=== PATIENT | female | born 1955 | race Caucasian/White ===

== ENCOUNTER 2021-07-06 14:21 | Emergency (ER) | payer OTHER ==
[2021-07-06 14:32] VITALS: RESP 18
[2021-07-06] MEDS ORDERED: SODIUM CHLORIDE 0.9% 1,000 ML IV STA (15:34)
[2021-07-06] MEDS ORDERED: ONDANSETRON 4 MG/2 ML VIAL IVP STA (15:34)
[2021-07-06] MEDS ORDERED: diphenhydrAMINE 50 MG/ML 1 ML VIAL IVP STA (15:34)
[2021-07-06] MEDS ORDERED: FAMOTIDINE 20 MG/2 ML VIAL IV STA (15:34)
[2021-07-06 15:52] LABS: Basophils % (A) 1 %; Eosinophils # (A) 0.1 k/uL (0-0.7); Eosinophils % (A) 1 %; HCT 44.1 % (34.0-46.0); HGB 14.4 gm/dL (11.4-16.0); Lymphocytes # (A) 1.2 k/uL (1.0-4.8); Lymphocytes % (A) 16 %; MCH 27.4 pg (25.0-35.0); MCHC 32.7 g/dL (31.0-37.0); MCV 83.7 fL (80.0-100.0); Mean Platelet Volume 7.6; Monocytes # (A) 0.4 k/uL (0-1.0); Monocytes % (A) 5 %; Neutrophils # (A) 5.8 k/uL (1.3-7.7); Neutrophils % (A) 76 %; Platelet Count 227 k/uL (150-450); RBC 5.27 m/uL (3.80-5.40); RDW 13.7 % (11.5-15.5); WBC 7.7 k/uL (3.8-10.6)
[2021-07-06] MEDS: MORPHINE SULFATE 2 MG/ML SYRINGE IVP STA ×2 (16:00→20:44)
[2021-07-06 16:03] LABS: ALT 17 U/L (4-34); AST 31 U/L (14-36); African American GFR (CKD) >90 (>60 ml/min/1.73 sqM); Albumin 4.3 g/dL (3.5-5.0); Alkaline Phosphatase 74 U/L (38-126); Amylase 52 U/L (30-110); Anion Gap 7 mmol/L; Blood Urea Nitrogen 13 mg/dL (7-17); Calcium 9.2 mg/dL (8.4-10.2); Carbon Dioxide 22 mmol/L (22-30); Chloride 107 mmol/L (98-107); Glucose 129 mg/dL (74-99); Lipase 86 U/L (23-300); Magnesium 2.1 mg/dL (1.6-2.3); Non-African American GFR(CKD) >90 (>60 ml/min/1.73 sqM); Sodium 136 mmol/L (137-145); Total Bilirubin 0.8 mg/dL (0.2-1.3); Total Protein 7.1 g/dL (6.3-8.2)
[2021-07-06 16:06] LABS: Potassium 4.3 mmol/L (3.5-5.1)
[2021-07-06 16:16] LABS: INR 2.9 (<1.2); Partial Thromboplastin Time 36.2 sec (22.0-30.0); Prothrombin Time 28.1 sec (9.0-12.0)
[2021-07-06 16:54] LABS: Appearance,Urine Clear (Clear); Bilirubin,Urine Negative (Negative); Blood,Urine Negative (Negative); Color,Urine Colorless; Glucose,Urine (UA) Negative (Negative); Ketones,Urine Negative (Negative); Leukocyte Esterase,Urine Negative (Negative); Nitrite,Urine Negative (Negative); PH, Urine 7.5 (5.0-8.0); Protein,Urine Negative (Negative); Specific Gravity,Urine 1.006 (1.001-1.035); Urobilinogen,Urine <2.0 mg/dL (<2.0)
--- NOTE | 2021-07-06 17:28 | ED ---
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 She states she has not had any fevers or chest pain. Denies any shortness breath, cough. She denies any change in her bowel habits. Denies any vaginal discharge or dysuria. She states abdominal pain is prematurely in the epigastric region and she does have a history of GERD suspected that may be related to an arrhythmia been something she ate. She endorses nausea and nonbilious, bloody emesis. She scribes the dizziness as a lightheadedness sensation sometimes as well as a vertiginous type of dizziness which she does have a history of. It comes and goes. She states she feels dry and may be dehydrated. She otherwise has no acute complaints at this time. She has any abdominal surgeries and states she still has her gallbladder as well as appendix. She denies any lower abdominal pain or back pain. She is no other acute complaints at this time. - Related Data Previous Rx's Medication Instructions Recorded Meclizine [Antivert] 25 mg PO BID PRN 7 Days #14 tab 07/06/21 Ondansetron Odt [Zofran Odt] 4 mg PO Q8HR PRN 2 Days #6 tab 07/06/21 Allergies Allergy/AdvReac Type Severity Reaction Status Date / Time No Known Allergies Allergy Verified 07/06/21 14:32 Review of Systems ROS Statement: Those systems with pertinent positive or pertinent negative responses have been documented in the HPI. Review of Systems: CONST: Denies fever EYES: Denies blurry vision ENT: Denies nasal congestion C/V: Denies Chest pain RESP: Denies shortness of breath GI: Endorses abdominal pain : Denies dysuria SKIN: Denies rash. MSK: Denies joint pain. NEURO: Denies headache ROS Other: All systems not noted in ROS Statement are negative. Past Medical History Past Medical History: Coronary Artery Disease (CAD), CVA/TIA, Hypertension History of Any Multi-Drug Resistant Organisms: None Reported Past Surgical History: Section, Hysterectomy Smoking Status: Never smoker Past Alcohol Use History: None Reported Past Drug Use History: None Reported General Exam - General Exam Comments Initial Comments: General: Appears in mild distress secondary to abdominal pain. HEAD: Normal with no signs of head trauma. EYES: PERRLA, EOMI, conjunctiva normal, no discharge. Pupils are 3 mm and equal bilaterally. ENT: Hearing grossly intact, normal oropharynx. Dry mucous membranes. RESPIRATORY: Clear breath sounds bilaterally. No wheezes, rales, or rhonchi. C/V: Regular rate and rhythm. S1 and S2 auscultated, no edema, peripheral pulses 2+ and intact throughout ABD: Soft, nondistended. Patient is tender to palpation in the epigastric region and right upper quadrant. No rebound tenderness. No CVA tenderness to percussion. No peritoneal signs. No guarding. EXT: Normal range of motion, no obvious deformity SKIN: No rashes or lesions observed on exposed skin. NEURO: Alert and oriented 4. Cranial nerves II through XII Intact. Patient do es have slight facial droop on the right side as well as slight weakness in the right upper and right lower extremity is which is chronic. She is able to ambulate. Patient has normal finger-nose testing. Limitations: no limitations Course Vital Signs 07/06/21 07/06/21 07/06/21 14:27 16:42 17:39 Temperature 98.4 F Pulse Rate 68 74 64 Respiratory 18 18 18 Rate Blood Pressure 172/101 192/112 163/83 O2 Sat by Pulse 99 98 96 Oximetry 07/06/21 20:45 Temperature 97.7 F Pulse Rate 61 Respiratory 18 Rate Blood Pressure 150/83 O2 Sat by Pulse 94 L Oximetry Medical Decision Making - Medical Decision Making Based on patient's presentation and physical exam, I'm concerned for likely acute intra-abdominal process for the Patient, a clean possible infectious process. However due to her age I cannot rule the possibility of ACS at this time. We will obtain abdominal laboratory studies as well as a cardiac workup: Troponin, EKG, chest x-ray. We will obtain a right upper quadrant gallbladder ultrasound. Patient was in agreement with this plan. She'll be connected to continuous cardiac monitoring while she is here. Patient will be given meclizine while here in the department as well as IV morphine, Zofran, 1 L fluid bolus, Pepcid, Benadryl for Synthroid treatment. She was in agreement this plan. Patient's EKG shows no signs of acute ischemia. Patient's right upper quadrant ultrasound was unremarkable. Patient's chest x-ray shows no acute cardiopulmonary process. Lab studies are remarkable for negative troponin. Patient has an elevated INR in the setting of chronic Coumadin use. It is therapeutic at this time. Electrolytes are unremarkable. Urinalysis is within normal limits per COVID-19 swab was negative. Remainder the lavatory studies are unremarkable. On reevaluation, patient states that her symptoms are somewhat improved but still is abdominal pain. Due to her age I did recommend that we obtain a CT abd pelvis at this time which was in agreement this plan. There was a delay in obtaining a CT abdomen and pelvis, due to increased volume in the department as well as CT scanner having to be shut down for a period of Time the patient was here. Eventually patient did obtain a CT abdomen and pelvis and was remarkable for no acute findings. On reevaluation, she is feeling improved at this time. She is tolerating by mouth intake. I do believe it is safer to be discharged home. She was in agreement this plan. I will provide the patient with a prescription for meclizine, ODT Zofran. I instructed the patient to follow up with their PCP in the next 3 days. . I explained that the patient should return to the emergency department if they experience any worsening symptoms. Strict return precautions were discussed with the patient. The patient expressed understanding of these instructions. I answered all questions that the patient had. The patient was discharged home in fair condition with their prescriptions and follow up information. - Lab Data Result diagrams: 07/06/21 15:38 07/06/21 15:38 Lab Results 07/06/21 07/06/21 07/06/21 Range/Units 15:38 15:38 15:38 WBC 7.7 (3.8-10.6) k/uL RBC 5.27 (3.80-5.40) m/uL Hgb 14.4 (11.4-16.0) gm/dL Hct 44.1 (34.0-46.0) % MCV 83.7 (80.0-100.0) fL MCH 27.4 (25.0-35.0) pg MCHC 32.7 (31.0-37.0) g/dL RDW 13.7 (11.5-15.5) % Plt Count 227 (150-450) k/uL MPV 7.6 Neutrophils % 76 % Lymphocytes % 16 % Monocytes % 5 % Eosinophils % 1 % Basophils % 1 % Neutrophils # 5.8 (1.3-7.7) k/uL Lymphocytes # 1.2 (1.0-4.8) k/uL Monocytes # 0.4 (0-1.0) k/uL Eosinophils # 0.1 (0-0.7) k/uL Basophils # 0.0 (0-0.2) k/uL PT 28.1 H (9.0-12.0) sec INR 2.9 H (<1.2) APTT 36.2 H (22.0-30.0) sec Sodium 136 L (137-145) mmol/L Potassium 4.3 (3.5-5.1) mmol/L Chloride 107 (98-107) mmol/L Carbon Dioxide 22 (22-30) mmol/L Anion Gap 7 mmol/L BUN 13 (7-17) mg/dL Creatinine 0.62 (0.52-1.04) mg/dL Est GFR (CKD-EPI)AfAm >90 (>60 ml/min/1.73 sqM) Est GFR (CKD-EPI)NonAf >90 (>60 ml/min/1.73 sqM) Glucose 129 H (74-99) mg/dL Calcium 9.2 (8.4-10.2) mg/dL Magnesium 2.1 (1.6-2.3) mg/dL Total Bilirubin 0.8 (0.2-1.3) mg/dL AST 31 (14-36) U/L ALT 17 (4-34) U/L Alkaline Phosphatase 74 (38-126) U/L Troponin I (0.000-0.034) ng/mL Total Protein 7.1 (6.3-8.2) g/dL Albumin 4.3 (3.5-5.0) g/dL Amylase 52 (30-110) U/L Lipase 86 (23-300) U/L Urine Color Urine Appearance (Clear) Urine pH (5.0-8.0) Ur Specific [place] (1.001-1.035) Urine Protein (Negative) Urine Glucose (UA) (Negative) Urine Ketones (Negative) Urine Blood (Negative) Urine Nitrite (Negative) Urine Bilirubin (Negative) Urine Urobilinogen (<2.0) mg/dL Ur Leukocyte Esterase (Negative) Coronavirus (PCR) (Not Detectd) 07/06/21 07/06/21 07/06/21 Range/Units 15:38 16:06 16:42 WBC (3.8-10.6) k/uL RBC (3.80-5.40) m/uL Hgb (11.4-16.0) gm/dL Hct (34.0-46.0) % MCV (80.0-100.0) fL MCH (25.0-35.0) pg MCHC (31.0-37.0) g/dL RDW (11.5-15.5) % Plt Count (150-450) k/uL MPV Neutrophils % % Lymphocytes % % Monocytes % % Eosinophils % % Basophils % % Neutrophils # (1.3-7.7) k/uL Lymphocytes # (1.0-4.8) k/uL Monocytes # (0-1.0) k/uL Eosinophils # (0-0.7) k/uL Basophils # (0-0.2) k/uL PT (9.0-12.0) sec INR (<1.2) APTT (22.0-30.0) sec Sodium (137-145) mmol/L Potassium (3.5-5.1) mmol/L Chloride (98-107) mmol/L Carbon Dioxide (22-30) mmol/L Anion Gap mmol/L BUN (7-17) mg/dL Creatinine (0.52-1.04) mg/dL Est GFR (CKD-EPI)AfAm (>60 ml/min/1.73 sqM) Est GFR (CKD-EPI)NonAf (>60 ml/min/1.73 sqM) Glucose (74-99) mg/dL Calcium (8.4-10.2) mg/dL Magnesium (1.6-2.3) mg/dL Total Bilirubin (0.2-1.3) mg/dL AST (14-36) U/L ALT (4-34) U/L Alkaline Phosphatase (38-126) U/L Troponin I <0.012 (0.000-0.034) ng/mL Total Protein (6.3-8.2) g/dL Albumin (3.5-5.0) g/dL Amylase (30-110) U/L Lipase (23-300) U/L Urine Color Colorless Urine Appearance Clear (Clear) Urine pH 7.5 (5.0-8.0) Ur Specific [place] 1.006 (1.001-1.035) Urine Protein Negative (Negative) Urine Glucose (UA) Negative (Negative) Urine Ketones Negative (Negative) Urine Blood Negative (Negative) Urine Nitrite Negative (Negative) Urine Bilirubin Negative (Negative) Urine Urobilinogen <2.0 (<2.0) mg/dL Ur Leukocyte Esterase Negative (Negative) Coronavirus (PCR) Not Detected (Not Detectd) - EKG Data -: EKG Interpreted by Me EKG Comments: 12-lead Electrocardiogram Interpretation Note EKG was reviewed and interpreted by myself. 12-lead ECG performed at 1440 is interpreted by me as revealing normal sinus rhythm at a rate of 73 beats per minute. [place] is normal. SD interval is 170 ms, QRS duration is 84 ms, QTc is 473 ms.. There were no ST or T wave abnormalities to suggest myocardial ischemia or injury. R wave progression across the precordium was satisfactory. By my interpretation this EKG is non-diagnostic for acute ischemia. Disposition Clinical Impression: Nausea and vomiting, Dehydration, Abdominal pain of unknown cause, Viral syndrome, Dizziness Disposition: HOME SELF-CARE Condition: Fair Instructions (If sedation given, give patient instructions): Acute Nausea and Vomiting (ED), Viral Syndrome (ED), Abdominal Pain (ED) Prescriptions: Meclizine [Antivert] 25 mg PO BID PRN 7 Days #14 tab PRN Reason: Vertigo Ondansetron Odt [Zofran Odt] 4 mg PO Q8HR PRN 2 Days #6 tab PRN Reason: Nausea Is patient prescribed a controlled substance at d/c from ED?: No Referrals: None,Stated [Primary Care Provider] - 1-2 days An Pedroza MD [STAFF PHYSICIAN] - 1-2 days
--- NOTE | 2021-07-06 17:30 | XR ---
EXAMINATION TYPE: XR chest 2V DATE OF EXAM: 07/06/2021 COMPARISON: NONE HISTORY: Chest pain TECHNIQUE: 2 views FINDINGS: There is no heart failure nor confluent pneumonic infiltrate. Costophrenic angles are clear . Thoracic aorta is atheromatous. There are chest leads. IMPRESSION: No active cardiopulmonary disease. Borderline cardiomegaly.
--- NOTE | 2021-07-06 17:34 | US ---
EXAMINATION TYPE: US gallbladder DATE OF EXAM: 07/06/2021 COMPARISON: NONE CLINICAL HISTORY: RUQ abd pain. Abdomen pain and N/V x couple days EXAM MEASUREMENTS: Liver Length: 14.4 cm Gallbladder Wall: 0.2 cm CBD: 0.4 cm Right Kidney: 9.5 x 4.1 x 4.3 cm Pancreas: visualized portions wnl, limited by overlying midline bowel gas Liver: wnl Gallbladder: wnl Evidence for sonographic Benavidez's sign: no CBD: visualized portions wnl, limited by overlying bowel gas Right Kidney: visualized portions wnl, inferior pole limited by overlying bowel gas IMPRESSION: No gallstones or dilated ducts. No free fluid.
[2021-07-06 20:46] VITALS: TEMP 97.7
[2021-07-06] MEDS ORDERED: MECLIZINE 12.5 MG TAB PO STA ×2 (20:48→21:43)
--- NOTE | 2021-07-06 21:35 | CT ---
EXAMINATION TYPE: CT abdomen pelvis w con DATE OF EXAM: 07/06/2021 COMPARISON: None HISTORY: abd pain CT DLP: 1198 mGycm Automated exposure control for dose reduction was used. CONTRAST: Performed with IV Contrast, patient injected with 100 mL of Isovue 300. There is some mild interstitial density at the lung bases. There is no pleural effusion. Heart size i s normal. There is no pericardial effusion. Liver spleen pancreas gallbladder appear normal. Bile ducts are not dilated. There is no adrenal mass . Kidneys show satisfactory contrast opacification. There is no hydronephrosis. Delayed images show n ormal renal excretion. Ureters are not dilated. Bladder distends smoothly. There is no inguinal herni a. There is no free fluid in the pelvis. There is no evidence of a pelvic mass. There is hysterectomy . Appendix appears normal. There is no mesenteric edema. There is no ascites or free air. There is no bowel obstruction. Lumbar vertebra have normal alignment. There is no compression fracture. Disc spaces are fairly normal. Post erior elements are intact. Bony pelvis is intact. Hip joints are intact. Impression Negative CT scan abdomen and pelvis.
[2021-07-06] MEDS ORDERED: MECLIZINE 25 MG TAB PO STA (21:44)
[2021-07-06 21:57] VITALS: BP 159/84; PULSE 68
== END 2021-07-06 22:02 | disposition home or self-care (01) ==
LOC: EC 14:21
DX: R10.13 Epigastric pain (principal); R11.2 Nausea with vomiting, unspecified; E86.0 Dehydration; B34.9 Viral infection, unspecified; R42 Dizziness and giddiness; I11.9 Hypertensive heart disease without heart failure; I25.10 Atherosclerotic heart disease of native coronary artery without angina pectoris; Z86.73 Personal history of transient ischemic attack (TIA), and cerebral infarction without residual deficits; Z90.710 Acquired absence of both cervix and uterus; Z20.822 Contact with and (suspected) exposure to COVID-19
CPT/HCPCS: 99285; 96374; 96375 ×2; 96361 ×5; 36415; 93005; 80053; 82150; 83690; 83735; 84484; 85025; 85610; 85730; 81003; 87635; 71046; 76705; 74177; J1200; J2405; Q9967; 99284

== ENCOUNTER → 2022-01-02 | Outpatient (CLI) | payer OTHER ==
[2022-01-02 15:08] LABS: ALT 22 U/L (8-44); AST 32 U/L (13-35); African American GFR (CKD) 85.7 (60.0-200.0); Albumin 4.2 g/dL (3.8-4.9); Albumin/Globulin Ratio 1.75 (1.60-3.17); Alkaline Phosphatase 74 U/L (41-126); BUN/Creat Ratio 24.79 Ratio (12.00-20.00); Blood Urea Nitrogen 20.7 mg/dL (9.0-27.0); Carbon Dioxide 21.7 mmol/L (20.0-27.5); Chloride 105 mmol/L (96-109); Chol/HDL Ratio 4.52 Ratio; Globulin 2.4 g/dL (1.6-3.3); Glucose 104 mg/dL (70-110); LDL Cholesterol,Calculated 171.8 mg/dL (0.0-131.0); Potassium 3.9 mmol/L (3.5-5.5); Sodium 139 mmol/L (135-145); Total Protein 6.7 g/dL (6.2-8.2)
== END | disposition home or self-care (01) ==
LOC: LABWHC1 08:33
PROVIDERS: ATTEND Internal Medicine Interventional Cardiology
DX: E78.2 Mixed hyperlipidemia (principal)
CPT/HCPCS: 36415; 80053; 80061

== ENCOUNTER 2022-05-22 13:11 | Emergency (ER) | payer OTHER ==
[2022-05-22 13:16] VITALS: TEMP 98.4
[2022-05-22] MEDS ORDERED: MORPHINE SULFATE 4 MG/ML SYRINGE IV STA (13:33)
[2022-05-22] MEDS ORDERED: SODIUM CHLORIDE 0.9% 500 ML 500 ML IV STA (13:33)
--- NOTE | 2022-05-22 13:38 | ED ---
Abdominal Pain HPI - General Source: patient, RN notes reviewed, old records reviewed Mode of arrival: ambulatory Limitations: no limitations - History of Present Illness MD Complaint: abdominal pain -: hour(s) (14) Location: RUQ, epigastric Radiation: back Severity scale (1-10): 9 Quality: stabbing Improves With: nothing Worsens With: movement Associated Symptoms: fever, chills Treatments Prior to Arrival: other (PCP office) <Cory Velez - Last Filed: 05/22/22 16:23> <Grant Jeffers - Last Filed: 05/22/22 17:54> - General Chief Complaint: Abdominal Pain Stated Complaint: Abdominal Pain Time Seen by Provider: 05/22/22 13:25 - History of Present Illness Initial Comments: This is a well-appearing 66-year-old female presents to the emergency room with complaints of right upper quadrant and epigastric pain that started at 10:30 last night. She states it radiates into her back. She states that she has had fever and chills. She called her primary care Dr. Kwon today who recommended she come to the emergency room for concerns of gallbladder infection. Patient has a history of hypertension, coronary artery disease, factor V leiden and TIA. She has no surgical history. She is a nonsmoker. She does take Coumadin daily. (Cory Velez) - Related Data Home Medications Medication Instructions Recorded Confirmed Aspirin EC [Ecotrin Low Dose] 81 mg PO DAILY 05/22/22 05/22/22 Cholecalciferol [Vitamin D3 (25 25 mcg PO DAILY 05/22/22 05/22/22 Mcg = 1000 Iu)] Ezetimibe [Zetia] 5 mg PO Q48H 05/22/22 05/22/22 Folic Acid 0.4 mg PO DAILY 05/22/22 05/22/22 Levothyroxine Sodium [Synthroid] 50 mcg PO DAILY 05/22/22 05/22/22 Omeprazole 20 mg PO DAILY 05/22/22 05/22/22 Propranolol HCl 20 mg PO BID 05/22/22 05/22/22 Sertraline [Zoloft] 12.5 mg PO DAILY 05/22/22 05/22/22 Warfarin Sodium 4 mg PO HS 05/22/22 05/22/22 amLODIPine [Norvasc] 5 mg PO HS 05/22/22 05/22/22 Allergies Allergy/AdvReac Type Severity Reaction Status Date / Time No Known Allergies Allergy Verified 05/22/22 16:42 Review of Systems ROS Other: All systems not noted in ROS Statement are negative. <Cory Velez - Last Filed: 05/22/22 16:23> ROS Other: All systems not noted in ROS Statement are negative. <Grant Jeffers - Last Filed: 05/22/22 17:54> ROS Statement: Those systems with pertinent positive or pertinent negative responses have been documented in the HPI. Past Medical History Past Medical History: Coronary Artery Disease (CAD), CVA/TIA, Hypertension History of Any Multi-Drug Resistant Organisms: None Reported Past Surgical History: Section, Hysterectomy Past Psychological History: No Psychological Hx Reported Smoking Status: Never smoker Past Alcohol Use History: None Reported Past Drug Use History: None Reported <Cory Velez - Last Filed: 05/22/22 16:23> General Exam Limitations: no limitations General appearance: alert, in no apparent distress Head exam: Present: atraumatic, normocephalic Eye exam: Absent: scleral icterus, conjunctival injection Neck exam: Absent: tenderness, meningismus Respiratory exam: Present: normal lung sounds bilaterally. Absent: respiratory distress, accessory muscle use Cardiovascular Exam: Present: regular rate, normal rhythm GI/Abdominal exam: Present: soft, tenderness (Epigastric right upper quadrant). Absent: rigid Extremities exam: Present: normal capillary refill. Absent: pedal edema Back exam: Present: normal inspection, full ROM. Absent: tenderness, CVA tenderness (R), CVA tenderness (L), rash noted Expanded Back exam: Absent: saddle anesthesia Back exam: Negative Straight Leg Raising: Right, Left Neurological exam: Present: alert, oriented X3 Psychiatric exam: Present: normal affect, normal mood Skin exam: Present: warm, dry, normal color. Absent: cyanosis, diaphoretic, petechiae, pallor <Cory Velez - Last Filed: 05/22/22 16:23> Course Vital Signs 05/22/22 13:13 Temperature 98.4 F Pulse Rate 71 Respiratory 20 Rate Blood Pressure 131/74 O2 Sat by Pulse 100 Oximetry Medical Decision Making - Lab Data Result diagrams: 05/22/22 13:53 05/22/22 13:53 - EKG Data EKG shows normal: sinus rhythm (Ventricular rate 61, NM interval 0.173, QRS 0.86, QTC 0.450 normal axis) <Cory Velez - Last Filed: 05/22/22 16:23> - Lab Data Result diagrams: 05/22/22 13:53 05/22/22 13:53 <Grant Jeffers - Last Filed: 05/22/22 17:54> - Medical Decision Making Bilirubin 2.6 with elevations in AST ALT and alk phos. No evidence of leukocytosis. Ultrasound shows cholelithiasis with cholecystitis. Gallbladder shows sludge and stones with thickened possible and edematous wall. Common bile duct upper limits of normal. Patient states her pain is relieved after the Dilaudid. Surgery was paged. Case was signed out to Dr. Jeffers (Cory Velez) Patient was signed out to me by previous shift of nurse practitioner, Cory Velez. Briefly, patient is a 66-year-old female presents emergency department for epigastric pain. Laboratory evaluation suggests biliary duct obstruction. Ultrasound of the gallbladder shows cholelithiasis and perhaps cholecystitis. Patient started on Unasyn. Case discussed with general surgeon, Dr. Perdomo who requests the patient be transferred to a facility that has gastroenterolgy given that her presentation suggests ductal obstruction. Dr. Reed at [facility] was went except patient for urinary or transfer. (Grant Jeffers) - Lab Data Lab Results 05/22/22 05/22/22 05/22/22 Range/Units 13:53 13:53 13:53 WBC 6.0 (3.8-10.6) k/uL RBC 5.29 (3.80-5.40) m/uL Hgb 14.5 (11.4-16.0) gm/dL Hct 44.8 (34.0-46.0) % MCV 84.7 (80.0-100.0) fL MCH 27.5 (25.0-35.0) pg MCHC 32.4 (31.0-37.0) g/dL RDW 13.5 (11.5-15.5) % Plt Count 242 (150-450) k/uL MPV 7.5 Neutrophils % 77 % Lymphocytes % 14 % Monocytes % 7 % Eosinophils % 1 % Basophils % 0 % Neutrophils # 4.6 (1.3-7.7) k/uL Lymphocytes # 0.8 L (1.0-4.8) k/uL Monocytes # 0.4 (0-1.0) k/uL Eosinophils # 0.1 (0-0.7) k/uL Basophils # 0.0 (0-0.2) k/uL PT (9.0-12.0) sec INR (<1.2) APTT (22.0-30.0) sec Sodium 138 (137-145) mmol/L Potassium 4.3 (3.5-5.1) mmol/L Chloride 107 (98-107) mmol/L Carbon Dioxide 24 (22-30) mmol/L Anion Gap 7 mmol/L BUN 12 (7-17) mg/dL Creatinine 0.78 (0.52-1.04) mg/dL Est GFR (CKD-EPI)AfAm >90 (>60 ml/min/1.73 sqM) Est GFR (CKD-EPI)NonAf 81 (>60 ml/min/1.73 sqM) Glucose 128 H (74-99) mg/dL Plasma Lactic Acid Ayad (0.7-2.0) mmol/L Calcium 9.1 (8.4-10.2) mg/dL Total Bilirubin 2.6 H (0.2-1.3) mg/dL AST 749 H (14-36) U/L ALT 440 H (4-34) U/L Alkaline Phosphatase 181 H (38-126) U/L Troponin I 0.015 (0.000-0.034) ng/mL Total Protein 7.4 (6.3-8.2) g/dL Albumin 4.4 (3.5-5.0) g/dL Amylase 46 (30-110) U/L Lipase 124 (23-300) U/L Urine Color Urine Appearance (Clear) Urine pH (5.0-8.0) Ur Specific [place] (1.001-1.035) Urine Protein (Negative) Urine Glucose (UA) (Negative) Urine Ketones (Negative) Urine Blood (Negative) Urine Nitrite (Negative) Urine Bilirubin (Negative) Urine Urobilinogen (<2.0) mg/dL Ur Leukocyte Esterase (Negative) 05/22/22 05/22/22 05/22/22 Range/Units 13:53 13:53 13:53 WBC (3.8-10.6) k/uL RBC (3.80-5.40) m/uL Hgb (11.4-16.0) gm/dL Hct (34.0-46.0) % MCV (80.0-100.0) fL MCH (25.0-35.0) pg MCHC (31.0-37.0) g/dL RDW (11.5-15.5) % Plt Count (150-450) k/uL MPV Neutrophils % % Lymphocytes % % Monocytes % % Eosinophils % % Basophils % % Neutrophils # (1.3-7.7) k/uL Lymphocytes # (1.0-4.8) k/uL Monocytes # (0-1.0) k/uL Eosinophils # (0-0.7) k/uL Basophils # (0-0.2) k/uL PT 27.9 H (9.0-12.0) sec INR 2.8 H (<1.2) APTT 41.4 H (22.0-30.0) sec Sodium (137-145) mmol/L Potassium (3.5-5.1) mmol/L Chloride (98-107) mmol/L Carbon Dioxide (22-30) mmol/L Anion Gap mmol/L BUN (7-17) mg/dL Creatinine (0.52-1.04) mg/dL Est GFR (CKD-EPI)AfAm (>60 ml/min/1.73 sqM) Est GFR (CKD-EPI)NonAf (>60 ml/min/1.73 sqM) Glucose (74-99) mg/dL Plasma Lactic Acid Ayad 1.9 (0.7-2.0) mmol/L Calcium (8.4-10.2) mg/dL Total Bilirubin (0.2-1.3) mg/dL AST (14-36) U/L ALT (4-34) U/L Alkaline Phosphatase (38-126) U/L Troponin I (0.000-0.034) ng/mL Total Protein (6.3-8.2) g/dL Albumin (3.5-5.0) g/dL Amylase (30-110) U/L Lipase (23-300) U/L Urine Color Yellow Urine Appearance Clear (Clear) Urine pH 6.0 (5.0-8.0) Ur Specific [place] 1.006 (1.001-1.035) Urine Protein Negative (Negative) Urine Glucose (UA) Negative (Negative) Urine Ketones Negative (Negative) Urine Blood Negative (Negative) Urine Nitrite Negative (Negative) Urine Bilirubin Negative (Negative) Urine Urobilinogen <2.0 (<2.0) mg/dL Ur Leukocyte Esterase Negative (Negative) Disposition <Cory Velez - Last Filed: 05/22/22 16:23> Time of Disposition: 17:54 - Out of Hospital Transfer - Req. Specs Out of Hospital Transfer - Requested Specifics: Other Emergency Center ([facility]) <Grant Jeffers - Last Filed: 05/22/22 17:54> Clinical Impression: Biliary obstruction Disposition: OTHER INSTITUTION NOT DEFINED Condition: Fair Referrals: Ozzie Kwon MD [Primary Care Provider] - 1-2 days
[2022-05-22] MEDS ORDERED: HYDROmorphone 0.5 MG/0.5 ML SYRINGE IVP STA (13:59)
[2022-05-22] MEDS ORDERED: ONDANSETRON 4 MG/2 ML VIAL IVP STA ×2 (14:18→18:42)
[2022-05-22 14:40] LABS: Basophils % (A) 0 %; Eosinophils # (A) 0.1 k/uL (0-0.7); Eosinophils % (A) 1 %; HCT 44.8 % (34.0-46.0); HGB 14.5 gm/dL (11.4-16.0); Lymphocytes # (A) 0.8 k/uL (1.0-4.8); Lymphocytes % (A) 14 %; MCH 27.5 pg (25.0-35.0); MCHC 32.4 g/dL (31.0-37.0); MCV 84.7 fL (80.0-100.0); Mean Platelet Volume 7.5; Monocytes # (A) 0.4 k/uL (0-1.0); Monocytes % (A) 7 %; Neutrophils # (A) 4.6 k/uL (1.3-7.7); Neutrophils % (A) 77 %; Platelet Count 242 k/uL (150-450); RBC 5.29 m/uL (3.80-5.40); RDW 13.5 % (11.5-15.5)
[2022-05-22 14:44] LABS: Appearance,Urine Clear (Clear); Bilirubin,Urine Negative (Negative); Blood,Urine Negative (Negative); Color,Urine Yellow; Glucose,Urine (UA) Negative (Negative); Ketones,Urine Negative (Negative); Leukocyte Esterase,Urine Negative (Negative); Nitrite,Urine Negative (Negative); Protein,Urine Negative (Negative); Specific Gravity,Urine 1.006 (1.001-1.035); Urobilinogen,Urine <2.0 mg/dL (<2.0)
[2022-05-22 14:48] LABS: ALT 440 U/L (4-34); AST 749 U/L (14-36); African American GFR (CKD) >90 (>60 ml/min/1.73 sqM); Albumin 4.4 g/dL (3.5-5.0); Alkaline Phosphatase 181 U/L (38-126); Amylase 46 U/L (30-110); Anion Gap 7 mmol/L; Blood Urea Nitrogen 12 mg/dL (7-17); Calcium 9.1 mg/dL (8.4-10.2); Carbon Dioxide 24 mmol/L (22-30); Chloride 107 mmol/L (98-107); Glucose 128 mg/dL (74-99); Lipase 124 U/L (23-300); Non-African American GFR(CKD) 81 (>60 ml/min/1.73 sqM); Potassium 4.3 mmol/L (3.5-5.1); Sodium 138 mmol/L (137-145); Total Bilirubin 2.6 mg/dL (0.2-1.3); Total Protein 7.4 g/dL (6.3-8.2)
[2022-05-22 14:49] LABS: INR 2.8 (<1.2); Partial Thromboplastin Time 41.4 sec (22.0-30.0); Prothrombin Time 27.9 sec (9.0-12.0)
--- NOTE | 2022-05-22 15:51 | US ---
EXAMINATION TYPE: US gallbladder DATE OF EXAM: 05/22/2022 COMPARISON: CT dated 07/06/2021, ultrasound 07/06/2021 CLINICAL HISTORY: RUQ and epigastric pain. TECHNIQUE: Multiple sonographic images of the right upper quadrant are obtained. FINDINGS: EXAM MEASUREMENTS: Liver Length: 16.7 cm Gallbladder Wall: 0.6 cm CBD: 0.6 cm Right Kidney: 10.6 x 4.2 x 4.5 cm SYSTEMS PLANNER NOTES: Pancreas: Obscured by bowel gas Liver: limited visualization due to body habitus, echotexture is coarse Gallbladder: sludge and stones, thickened possible edematous wall Evidence for sonographic Benavidez's sign: no CBD: upper limits of normal Right Kidney: wnl IMPRESSION: Correlate for hepatic steatosis and cholecystitis, there is cholelithiasis, limited exam
[2022-05-22] MEDS ORDERED: AMPICILLIN-SULBACTAM 3 GM in SODIUM CHLORIDE 0.9% 100 ML IVPB STA (17:18)
[2022-05-22 18:41] VITALS: BP 136/79; PULSE 70; RESP 16
== END 2022-05-22 19:07 | disposition other institution (70) ==
LOC: EC 13:11
DX: K83.1 Obstruction of bile duct (principal); I25.10 Atherosclerotic heart disease of native coronary artery without angina pectoris; I10 Essential (primary) hypertension; Z86.73 Personal history of transient ischemic attack (TIA), and cerebral infarction without residual deficits; Z79.82 Long term (current) use of aspirin; Z79.899 Other long term (current) drug therapy
CPT/HCPCS: 36415; 93005; 80053; 82150; 83605; 83690; 84484; 85025; 85610; 85730; 81003; 76705; 99285; 96365; 96375; 96376; J2405; J0295; J1170

== ENCOUNTER → 2023-03-22 | Outpatient (CLI) | payer BC ==
[2023-03-22 15:55] LABS: Chol/HDL Ratio 3.87 Ratio; LDL Cholesterol,Calculated 117.4 mg/dL
[2023-03-23 08:37] LABS: ALT 25 U/L; AST 22 U/L; Albumin 4.4 d/dL; Alkaline Phosphatase 85 U/L; BUN/Creat Ratio 23.62 Ratio; Blood Urea Nitrogen 18.9 mg/dL; Calcium 9.3 mg/dL; Carbon Dioxide 24.1 mmol/L; Chloride 101 mmol/L; Globulin 2.2 d/dL; Glucose 111 mg/dL; Potassium 4.1 mmol/L; Sodium 140 mmol/L; Total Bilirubin 0.3 mg/dL; Total Protein 6.6 d/dL
== END | disposition home or self-care (01) ==
LOC: LABWHC1 07:21
PROVIDERS: ATTEND Nurse Practitioner Adult Health
DX: I10 Essential (primary) hypertension (principal); E78.2 Mixed hyperlipidemia
CPT/HCPCS: 36415; 80053; 80061

== ENCOUNTER → 2023-10-15 | Outpatient (CLI) | payer BC ==
[2023-10-15 08:47] LABS: ALT 27 U/L (4-34); AST 30 U/L (14-36)
[2023-10-15 09:06] LABS: INR 1.8 (<1.2); Partial Thromboplastin Time 36.7 sec (22.0-30.0); Prothrombin Time 18.5 sec (10.0-12.5)
[2023-10-15 15:35] LABS: Chol/HDL Ratio 3.18 Ratio
== END | disposition home or self-care (01) ==
LOC: LABWHC1 07:09
PROVIDERS: ATTEND Internal Medicine Interventional Cardiology
DX: E78.2 Mixed hyperlipidemia (principal); D68.9 Coagulation defect, unspecified; D68.51 Activated protein C resistance
CPT/HCPCS: 36415; 80061; 84450; 84460; 85610; 85730

== ENCOUNTER → 2024-07-07 | Outpatient (CLI) | payer MEDICARE, BC ==
[2024-07-11 10:09] LABS: Alt. alternata IgE Class CLASS 0; Alternaria alternata IgE <0.10 kU/L (<0.10); Asperg. fumagatus IgE <0.10 kU/L (<0.10); Asperg. fumagatus IgE Class CLASS 0; Bermuda Grass IgE <0.10 kU/L (<0.10); Birch(Com.Silvr) IgE <0.10 kU/L (<0.10); Birch(Com.Silvr) IgE Class CLASS 0; Cat Epith & Dander IgE <0.10 kU/L (<0.10); Cat Epith & Dander IgE Class CLASS 0; Clad herbarum IgE <0.10 kU/L (<0.10); Clad herbarum IgE Class CLASS 0; Cockroach IgE <0.10 kU/L (<0.10); Cottonwood IgE <0.10 kU/L (<0.10); Dermato. Pteronyssinus Class CLASS 0; Dermato. Pteronyssinus IgE <0.10 kU/L (<0.10); Dermato. farinae IgE <0.10 kU/L (<0.10); Dermato. farinae IgE Class CLASS 0; Dog Dander IgE <0.10 kU/L (<0.10); Elm IgE <0.10 kU/L (<0.10); IgE (Allergen) 3.4 IU/mL (<114.0); Maple (Box Elder) IgE <0.10 kU/L (<0.10); Maple (Box Elder) IgE Class CLASS 0; Mountain Cedar IgE <0.10 kU/L (<0.10); Mountain Cedar IgE Class CLASS 0; Mouse Urine IgE Class CLASS 0; Mouse Urine Proteins,IgE <0.10 kU/L (<0.10); Nettle IgE <0.10 kU/L (<0.10); Nettle IgE Class CLASS 0; Oak IgE <0.10 kU/L (<0.10); Penicillium chrysogenum IgE <0.10 kU/L (<0.10); Penicillium chrysogenum IgE Cl CLASS 0; Rough Marshelder IgE <0.10 kU/L (<0.10); Rough Marshelder IgE Class CLASS 0; Timothy Grass IgE <0.10 kU/L (<0.10); Timothy Grass IgE Class CLASS 0; White Ash IgE Class CLASS 0
== END | disposition home or self-care (01) ==
LOC: LABWHC1 08:58
PROVIDERS: ATTEND Internal Medicine Critical Care Medicine
DX: J30.9 Allergic rhinitis, unspecified (principal)
CPT/HCPCS: 36415; 82785; 85008; 86003

== ENCOUNTER → 2024-07-18 | Outpatient (CLI) | payer MEDICARE, BC ==
--- NOTE | 2024-07-18 11:12 | US ---
EXAMINATION TYPE: US abdomen complete DATE OF EXAM: 07/18/2024 COMPARISON: US 2021, CT 2020 CLINICAL INDICATION: Female, 68 years old with history of R10.12 LUQ PAIN K86.2 PANCREATIC CYSTS; LUQ pain TECHNIQUE: Multiple sonographic images of the abdomen are obtained. FINDINGS: EXAM MEASUREMENTS: Liver Length: 15.0 cm CBD: 0.5 cm Spleen: 10.8 cm Right Kidney: 10.8 x 4.4 x 4.4 cm Left Kidney: 9.5 x 4.4 x 4.1 cm Pancreas: visualized portions wnl, tail obscured by overlying midline bowel gas Liver: increased echogenicity, 2.7 x 1.6 x 2.7cm hypoechoic area seen Gallbladder: surgically absent Evidence for sonographic Benavidez's sign: no CBD: 0.5cm Spleen: 1.3cm cyst Right Kidney: wnl Left Kidney: wnl Upper IVC: wnl Abd Aorta: wnl IMPRESSION: 1. Increased echogenicity of the liver compatible cellulitis disease or stenosis. 2.7 cm area of redu sissy echogenicity may represent areas of focal fatty sparing which could be confirmed with CT scan. 2. Post cholecystectomy. [facility], , 07/18/2024 11:10 AM
== END | disposition home or self-care (01) ==
LOC: RADUSWWP 07:20
PROVIDERS: ATTEND Internal Medicine Gastroenterology
DX: K86.2 Cyst of pancreas (principal); Z90.49 Acquired absence of other specified parts of digestive tract
CPT/HCPCS: 76700

== ENCOUNTER 2024-11-19 14:47 | Emergency (ER) | payer MEDICARE, BC ==
--- NOTE | 2024-11-19 16:01 | XR ---
EXAMINATION TYPE: XR tibia fibula LT, XR ankle complete LT DATE OF EXAM: 11/19/2024 3:48 PM COMPARISON: None. CLINICAL INDICATION: Female, 69 years old with history of fall, ,injury; H TECHNIQUE: XR tibia fibula LT, XR ankle complete LT; examined in AP and lateral projections. FINDINGS: Comminuted displaced fracture of the distal fibular shaft with approximately 6 mm medial distraction of the distal fracture component. Severely comminuted displaced fracture of the mid and distal tibial shaft. There is approximately 7-8 mm of anterior distraction of the distal tibial fracture component . Fracture line seen extending into the tibiotalar joint. Medial clear space is maintained. Talus olena ears intact. There is a 5 mm along the plantar calcaneal surface. No unexpected retained foreign body . IMPRESSION: 1. Severely comminuted displaced fracture of the mid and distal tibial shaft. Portion of the fractur e line seen extending into the tibiotalar joint. 2. Comminuted displaced fracture of the distal fibular shaft. [facility], , 11/19/2024 3:58 PM
[2024-11-19] MEDS: HYDROmorphone 1 MG/ML 1 ML SYRINGE IM STA ×2 (16:33→18:16)
--- NOTE | 2024-11-19 16:36 | ED ---
Lower Extremity Injury HPI - General Chief Complaint: Extremity Injury, Lower Stated Complaint: left leg injury Time Seen by Provider: 11/19/24 15:03 Source: patient, RN notes reviewed Mode of arrival: wheelchair Limitations: no limitations - History of Present Illness Initial Comments: This is a 69-year-old female presenting with left lower extremity injury (07/27) x 1 hour ago. Patient states she suffered a slip and fall on the ice outdoors about 1 hour prior to ER arrival. Patient states she fell forward, catching herself with her elbows, but injuring her left leg during the fall. Denies elbow pain/injury, striking her head, loss of consciousness, headache, neck pain. Patient states she is currently on warfarin for factor V Leiden. MD Complaint: leg injury, ankle injury Onset/Timin -: hour(s) Injury: Leg: Left, Ankle: Left Place: street/outdoors Severity scale (1-10): 10 Improves With: immobilization Worsens With: weight bearing, movement, palpation Context: fall Associated Symptoms: swelling, unable to bear weight - Related Data Home Medications Medication Instructions Recorded Confirmed Aspirin EC [Ecotrin Low Dose] 81 mg PO DAILY 05/22/22 05/22/22 Cholecalciferol [Vitamin D3 (25 25 mcg PO DAILY 05/22/22 05/22/22 Mcg = 1000 Iu)] Ezetimibe [Zetia] 5 mg PO Q48H 05/22/22 05/22/22 Folic Acid 0.4 mg PO DAILY 05/22/22 05/22/22 Levothyroxine Sodium [Synthroid] 50 mcg PO DAILY 05/22/22 05/22/22 Omeprazole 20 mg PO DAILY 05/22/22 05/22/22 Propranolol HCl 20 mg PO BID 05/22/22 05/22/22 Sertraline [Zoloft] 12.5 mg PO DAILY 05/22/22 05/22/22 Warfarin Sodium 4 mg PO HS 05/22/22 05/22/22 amLODIPine [Norvasc] 5 mg PO HS 05/22/22 05/22/22 Allergies Allergy/AdvReac Type Severity Reaction Status Date / Time No Known Allergies Allergy Verified 11/19/24 15:03 Review of Systems ROS Statement: Those systems with pertinent positive or pertinent negative responses have been documented in the HPI. ROS Other: All systems not noted in ROS Statement are negative. Past Medical History Past Medical History: Coronary Artery Disease (CAD), CVA/TIA, Hypertension History of Any Multi-Drug Resistant Organisms: None Reported Past Surgical History: Section, Hysterectomy Past Psychological History: No Psychological Hx Reported Smoking Status: Never smoker Past Alcohol Use History: None Reported Past Drug Use History: None Reported General Exam Limitations: no limitations General appearance: alert, in no apparent distress Head exam: Present: atraumatic, normocephalic, normal inspection Eye exam: Present: normal appearance, PERRL, EOMI. Absent: scleral icterus, conjunctival injection, periorbital swelling ENT exam: Present: normal exam, mucous membranes moist Neck exam: Present: normal inspection. Absent: tenderness, meningismus, lymphadenopathy Respiratory exam: Present: normal lung sounds bilaterally. Absent: respiratory distress, wheezes, rales, rhonchi, stridor Cardiovascular Exam: Present: regular rate, normal rhythm, normal heart sounds. Absent: systolic murmur, diastolic murmur, rubs, gallop, clicks GI/Abdominal exam: Present: soft, normal bowel sounds. Absent: distended, tenderness, guarding, rebound, rigid Extremities exam: Present: tenderness (Positive left mid/distal lower extremity diffuse TTP and pain with movement), normal capillary refill, other (Obviously deformed LLE with loss of most distal motor function attributed to pain. Distal neurovascular intact, dorsalis pedis pulse +1 negative ecchymosis, open wound/laceration). Absent: pedal edema, joint swelling, calf tenderness Back exam: Present: normal inspection Neurological exam: Present: alert, oriented X3, CN II-XII intact Psychiatric exam: Present: normal affect, normal mood Skin exam: Present: warm, dry, intact, normal color. Absent: rash Course Vital Signs 11/19/24 11/19/24 15:01 17:42 Temperature 98.3 F 98.7 F Pulse Rate 68 66 Respiratory 16 20 Rate Blood Pressure 145/88 136/79 O2 Sat by Pulse 99 97 Oximetry Procedures - Orthopedic Splinting/Casting Injury #1 Side: left Lower Extremity Injury Location: short leg, ankle Lower Extremity Immobilizer: posterior splint, stirrup splint Additional Comments: Post splint neurovascular remains intact Medical Decision Making - Medical Decision Making Was pt. sent in by a medical professional or institution (Dr., PA, MAINFRAME DEVELOPER, urgent care, hospital, or care home...) When possible be specific @ -No Did you speak to anyone other than the patient for history (EMS, parent, family, police, friend...)? What history was obtained from this source @ - provided portion of HPI Did you review nursing and triage notes (agree or disagree)? Why? @ -I reviewed and agree with nursing and triage notes Were old charts reviewed (outside hosp., previous admission, EMS record, old EKG, old radiological studies, urgent care reports/EKG's, care home records)? Report findings @ -No old charts were reviewed Differential Diagnosis (chest pain, altered mental status, abdominal pain women, abdominal pain men, vaginal bleeding, weakness, fever, dyspnea, syncope, headache, dizziness, GI bleed, back pain, seizure, CVA, palpatations, mental health, musculoskeletal)? @ -Differential Musculoskeletal Muscular strain, contusion, ligament sprain, fracture, arthritis, septic arthritis, bursitis, cellulitis, muscle spasm, nerve compression, DVT, arterial occlusion, herpes zoster, electrolyte abnormality, tumor.... This is not meant to be in all inclusive list EKG interpreted by me (3pts min.). @ -Not done X-rays interpreted by me (1pt min.). @ -Left tib-fib/ankle x-ray shows severely comminuted displaced fracture of the mid and distal tibial shaft and comminuted displaced fracture of the distal fibular shaft. Tibial fracture line extends into the tibiotalar joint. CT interpreted by me (1pt min.). @ -None done U/S interpreted by me (1pt. min.). @ -None done What testing was considered but not performed or refused? (CT, X-rays, U/S, labs)? Why? @ -None What meds were considered but not given or refused? Why? @ -None Did you discuss the management of the patient with other professionals (jessica loaiza i.e. , RADHA, MAINFRAME DEVELOPER, lab, RT, psych nurse, social services designee, moisture meter operator, teacher, tactical response group officer, foster care case manager)? Give summary @ - Dr. Lebron sent from orthopedics contacted who advised transfer to [facility]. Spoke to Dr. Simon from [facility] who agreed to ER to ER transfer will alert Dr. Squires of incoming patient. Was smoking cessation discussed for >3mins.? @ -No Was critical care preformed (if so, how long)? @ -No Were there social determinants of health that impacted care today? How? (Homelessness, low income, unemployed, alcoholism, drug addiction, transporta tion, low edu. Level, literacy, decrease access to med. care, prison, rehab)? @ -No Was there de-escalation of care discussed even if they declined (Discuss DNR or withdrawal of care, Hospice)? DNR status @ -No What co-morbidities impacted this encounter? (DM, HTN, Smoking, COPD, CAD, Cancer, CVA, ARF, Chemo, Hep., AIDS, mental health diagnosis, sleep apnea, morbid obesity)? @ -Factor V Leiden, Coumadin use Was patient admitted / discharged? Hospital course, mention meds given and route, prescriptions, significant lab abnormalities, going to OR and other pertinent info. @ -Left tib-fib/ankle x-ray shows severely comminuted displaced fracture of the mid and distal tibial shaft and comminuted displaced fracture of the distal fibular shaft. Tibial fracture line extends into the tibiotalar joint. Patient provided IM Dilaudid for pain. Additional IM Dilaudid ordered prior to splinting of left lower extremity with stabilization and assistance provided by RN. Patient began having nausea following initial Dilaudid dose and second dose canceled - IM Zofran provided instead. Dr. Lebron sent from orthopedics contacted who advised transfer to [facility]. Spoke to Dr. Simon from [facility] who agreed to ER to ER transfer will alert Dr. Squires of incoming patient. Discussed patient with Dr. Lomas. Undiagnosed new problem with uncertain prognosis? @ -No Drug Therapy requiring intensive monitoring for toxicity (Heparin, Nitro, Insulin, Cardizem)? @ -No Were any procedures done? @ -Splinting of LLE performed without complication Diagnosis/symptom? @ -Closed comminuted displaced tib-fib fracture extending into tibiotalar joint Acute, or Chronic, or Acute on Chronic? @ -Acute Uncomplicated (without systemic symptoms) or Complicated (systemic symptoms)? @ -Complicated Side effects of treatment? @ -No Exacerbation, Progression, or Severe Exacerbation? @ -No Poses a threat to life or bodily function? How? (Chest pain, [place], [place], pneumonia, PE, COPD, DKA, ARF, appy, cholecystitis, CVA, Diverticulitis, Homicidal, Suicidal, threat to staff... and all critical care pts) @ -No Disposition Clinical Impression: Displaced comminuted fracture of shaft of left tibia, initial encounter for closed fracture, Displaced comminuted fracture of shaft of fibula Disposition: ADMITTED IP TO THIS HOSP Condition: Stable Is patient prescribed a controlled substance at d/c from ED?: No Referrals: Tracey Ramirez MD [Primary Care Provider] - 1-2 days Time of Disposition: 17:01 - Out of Hospital Transfer - Req. Specs Out of Hospital Transfer - Requested Specifics: Other Emergency Center ([facility])
[2024-11-19] MEDS: ONDANSETRON 4 MG/2 ML VIAL IM STA (17:13)
[2024-11-19 17:43] VITALS: PULSE 66; RESP 20; TEMP 98.7
--- NOTE | 2024-11-19 17:45 | P.PN ---
Progress Note - Text Progress Note Date: 11/19/24 Discussed case with ED provider. Due to complex nature of the fracture, high comminution, with intraarticular extension it is recommended patient be treated by orthopedic trauma with higher level of care at [facility]. Dr. Squires Contacted. He is willing to accept. Pt will be transferred.
[2024-11-19 19:15] VITALS: BP 126/78
== END 2024-11-19 19:10 | disposition other institution (70) ==
LOC: EC 14:47
DX: S82.202A Unspecified fracture of shaft of left tibia, initial encounter for closed fracture (principal); S82.402A Unspecified fracture of shaft of left fibula, initial encounter for closed fracture; D68.51 Activated protein C resistance; Z79.01 Long term (current) use of anticoagulants; W00.0XXA Fall on same level due to ice and snow, initial encounter
CPT/HCPCS: 73590; 73610; 99284; 96372 ×2; 29515; J2405; J1171; 29505